=== PATIENT | female | born 1940 | race Caucasian/White ===

== ENCOUNTER 2017-03-09 17:10 | Inpatient (IN) | payer MEDICARE ==
[~2017-03-09] VITALS: Ht 152.4 cm; Wt 70.7 kg
[~2017-03-09 17:10] MED LIST: AMLO10TA2 PO; HYDR-3240 PO; HYDR-3342 PO; INSU100V5 SQ-INSULIN; METO-93 PO; METO25TA35 PO; SIMV10TA3 PO
[2017-03-09] MEDS ORDERED: ACETAMINOPHEN 325 MG TABLET PO ONE (17:30)
[2017-03-09] MEDS ORDERED: SODIUM CHLORIDE 0.9% 1,000ML IVBOLUS ONE ×2 (17:30→19:30)
[2017-03-09] MEDS ORDERED: SODIUM CHLORIDE FLUSH 10ML SYR IVF ONE (17:30)
[2017-03-09] MEDS ORDERED: ACETAMINOPHEN 325 MG TABLET ONE ×2 (17:43→17:44)
[2017-03-09 17:52] LABS: RAPID INFLUENZA A Negative (Negative); RAPID INFLUENZA B Negative (Negative)
[2017-03-09 18:13] LABS: ASPARTATE AMINO TRANSFERASE 8 U/L (15-37); BLOOD UREA NITROGEN 16 mg/dL (7-18)
[2017-03-09] MEDS ORDERED: CEFTRIAXONE PMX 1GM/50ML 50 ML ONE (18:54)
[2017-03-09] MEDS ORDERED: AZITHROMYCIN 500 MG in SODIUM CHLORIDE 0.9% 250 ML IV ONE (19:00)
[2017-03-09] MEDS ORDERED: CEFTRIAXONE PMX 1GM/50ML 50 ML IV ONE (19:00)
[2017-03-09] MEDS ORDERED: SODIUM CHLORIDE 0.9%, 500ML IVBOLUS ONE (19:00)
[2017-03-09] MEDS ORDERED: GLIP10TA13 PO (19:43)
[2017-03-09] MEDS ORDERED: OMEP-110 PO (19:44)
[2017-03-09] MEDS ORDERED: ASPI-496 PO (19:44)
[2017-03-09] MEDS ORDERED: ATOR10TA9 PO (19:45)
[2017-03-09] MEDS ORDERED: NOREPINEPHRINE 4 MG in SODIUM CHLORIDE 0.9% 246 ML IV PRN (20:00)
[2017-03-09] MEDS ORDERED: BISACODYL 10 MG SUPP PR PRN (22:00)
[2017-03-09] MEDS ORDERED: LABETALOL 5MG/ML 40ML VIAL IV PRN (22:00)
[2017-03-09] MEDS ORDERED: POLYETHYLENE GLYCOL 17 GM PACKET PO PRN (22:00)
[2017-03-09] MEDS ORDERED: VANCOMYCIN PER PHARMACY MC PRN (22:00)
[2017-03-09] MEDS ORDERED: HYDROcodone/APAP 5/325 TABLET PO PRN (22:00)
[2017-03-09] MEDS ORDERED: ACETAMINOPHEN 325 MG TABLET PO PRN (22:00)
[2017-03-09] MEDS ORDERED: DOCUSATE 100 MG CAPSULE PO PRN (22:00)
[2017-03-09] MEDS ORDERED: HEPARIN 5,000 UNITS/ML, 1ML ONE (23:37)
[2017-03-09] MEDS ORDERED: PIPERACILLIN/TAZO/PMX 3.375GM 50 ML ONE (23:37)
[2017-03-09] MEDS: PIPERACILLIN/TAZO/PMX 3.375GM 50 ML IV SCH (23:48)
[2017-03-09] MEDS: HEPARIN 5,000 UNITS/ML, 1ML SQ SCH (23:49)
[2017-03-10 00:30] LABS: IS PT STATUS REG ER OR PRE ER? YES
[2017-03-10] MEDS: INSULIN ASPART 100 UNITS/ML, PEN SQ-INSULIN SCH ×5 (01:41→20:40)
[2017-03-10] MEDS: ATORVASTATIN 10 MG TABLET PO SCH ×2 (03:34→20:34)
[2017-03-10] MEDS ORDERED: VANCOMYCIN 1,000 MG in SODIUM CHLORIDE 0.9% 100 ML IV ONE (04:00)
[2017-03-10] MEDS ORDERED: PHARMACOKINETIC MONITORING MC PRN (04:30)
[2017-03-10 05:10] LABS: ASPARTATE AMINO TRANSFERASE 16 U/L (15-37); BLOOD UREA NITROGEN 23 mg/dL (7-18)
[2017-03-10 05:17] LABS: IS PT STATUS REG ER OR PRE ER? YES
[2017-03-10] MEDS ORDERED: PIPERACILLIN/TAZO/PMX 3.375GM 50 ML ONE (05:33)
[2017-03-10] MEDS: PIPERACILLIN/TAZO/PMX 3.375GM 50 ML IV SCH ×3 (05:48→16:00)
[2017-03-10] MEDS: HEPARIN 5,000 UNITS/ML, 1ML SQ SCH ×2 (06:18→16:49)
[2017-03-10 08:41] VITALS: BP 109/57
[2017-03-10 09:10] VITALS: BP 97/48
[2017-03-10] MEDS: ASPIRIN 81 MG TABLET EC PO SCH (11:39)
[2017-03-10 13:30] VITALS: BP 181/82
[2017-03-10] MEDS: LINEZOLID PMX 600MG/300ML 300 ML IV SCH (14:26)
[2017-03-10] MEDS ORDERED: LIDOCAINE 1%, 20ML ONE (15:08)
[2017-03-10] MEDS ORDERED: SODIUM BICARBONATE 4.2%, 5ML ONE (15:08)
[2017-03-10 16:46] LABS: CYTOLOGY BODY FLUID RECD INTO PATHOLOGY; CYTOLOGY BODY FLUID SOURCE PLEURAL FLUID
[2017-03-10] MEDS: HYDROcodone/APAP 5/325 TABLET PO PRN ×2 (16:50→20:35)
[2017-03-10] MEDS: PIPERACILLIN/TAZO/PMX 2.25GM 50 ML IVPB SCH ×2 (17:49→22:58)
[2017-03-10] MEDS: TRAZODONE 50MG TABLET PO PRN (20:35)
[2017-03-11] MEDS: LINEZOLID PMX 600MG/300ML 300 ML IV SCH ×2 (00:41→11:59)
[2017-03-11] MEDS: HEPARIN 5,000 UNITS/ML, 1ML SQ SCH ×3 (02:03→18:24)
[2017-03-11] MEDS: HYDROcodone/APAP 5/325 TABLET PO PRN ×3 (04:38→15:49)
[2017-03-11 05:30] VITALS: BP 110/40
[2017-03-11] MEDS: PIPERACILLIN/TAZO/PMX 2.25GM 50 ML IVPB SCH ×3 (06:23→20:28)
[2017-03-11] MEDS: INSULIN ASPART 100 UNITS/ML, PEN SQ-INSULIN SCH ×4 (06:28→20:31)
[2017-03-11] MEDS: ASPIRIN 81 MG TABLET EC PO SCH (10:41)
[2017-03-11] MEDS: ATORVASTATIN 10 MG TABLET PO SCH (20:28)
[2017-03-12] MEDS ORDERED: PROCHLORPERAZINE 5 MG/ML, 2ML IM SCH
[2017-03-12] MEDS ORDERED: MORPHINE SULFATE 4 MG/ML, 1ML IVPush PRN
[2017-03-12] MEDS ORDERED: LORazepam 2 MG/ML, 1ML IVPush PRN
[2017-03-12] MEDS: LINEZOLID PMX 600MG/300ML 300 ML IV SCH ×2 (00:14→20:40)
[2017-03-12] MEDS: PIPERACILLIN/TAZO/PMX 2.25GM 50 ML IVPB SCH ×2 (01:16→09:16)
[2017-03-12] MEDS: HEPARIN 5,000 UNITS/ML, 1ML SQ SCH ×3 (01:18→18:27)
[2017-03-12 06:00] VITALS: BP 80/70
[2017-03-12] MEDS: HYDROcodone/APAP 5/325 TABLET PO PRN ×2 (07:43→15:28)
[2017-03-12] MEDS: INSULIN ASPART 100 UNITS/ML, PEN SQ-INSULIN SCH ×4 (07:57→20:40)
[2017-03-12 08:40] LABS: BLOOD UREA NITROGEN 20 mg/dL (7-18)
[2017-03-12] MEDS: ASPIRIN 81 MG TABLET EC PO SCH (09:17)
[2017-03-12 09:43] LABS: BLOOD UREA NITROGEN 20 mg/dL (7-18)
[2017-03-12] MEDS ORDERED: AMPICILLIN/SULBACTAM 3 GM in SODIUM CHLORIDE 0.9% 100 ML IV SCH (12:30)
[2017-03-12 14:14] LABS: CYTOLOGY BODY FLUID RECD INTO PATHOLOGY; CYTOLOGY BODY FLUID SOURCE PLEURAL FLUID
[2017-03-12] MEDS ORDERED: HYDROcodone/APAP 5/325 TABLET PO PRN (15:59)
[2017-03-12] MEDS ORDERED: PIPERACILLIN/TAZO 0.75 GM in SODIUM CHLORIDE 0.9% 50 ML IV SCH (16:00)
[2017-03-12] MEDS ORDERED: LIDOCAINE 2% VISCOUS, 100ML MM PRN (16:30)
[2017-03-12] MEDS ORDERED: SODIUM CHLORIDE 0.9% 1,000 ML IV PRN (16:30)
[2017-03-12] MEDS ORDERED: BENZOCAINE AEROSOL SPRAY 20%, 60ML TP PRN (16:30)
[2017-03-12] MEDS: ATORVASTATIN 10 MG TABLET PO SCH (19:51)
[2017-03-12] MEDS: PIPERACILLIN/TAZO/PMX 2.25GM 50 ML IV SCH (19:51)
[2017-03-12] MEDS: TRAZODONE 50MG TABLET PO PRN (21:24)
[2017-03-13] MEDS ORDERED: PROCHLORPERAZINE 5 MG/ML, 2ML IM PRN
[2017-03-13] MEDS: HEPARIN 5,000 UNITS/ML, 1ML SQ SCH ×3 (02:11→17:57)
[2017-03-13] MEDS: PIPERACILLIN/TAZO/PMX 2.25GM 50 ML IV SCH ×3 (04:02→20:20)
[2017-03-13 04:47] LABS: BLOOD UREA NITROGEN 14 mg/dL (7-18)
[2017-03-13 05:41] VITALS: BP 113/96
[2017-03-13] MEDS: INSULIN ASPART 100 UNITS/ML, PEN SQ-INSULIN SCH ×4 (07:00→20:24)
[2017-03-13] MEDS: LINEZOLID PMX 600MG/300ML 300 ML IV SCH ×2 (08:39→20:20)
[2017-03-13] MEDS: ASPIRIN 81 MG TABLET EC PO SCH (09:00)
[2017-03-13] MEDS: ATORVASTATIN 10 MG TABLET PO SCH (20:20)
[2017-03-14] MEDS: HEPARIN 5,000 UNITS/ML, 1ML SQ SCH ×3 (02:00→20:09)
[2017-03-14] MEDS: PIPERACILLIN/TAZO/PMX 2.25GM 50 ML IV SCH ×3 (04:05→20:08)
[2017-03-14 04:33] LABS: BLOOD UREA NITROGEN 18 mg/dL (7-18)
[2017-03-14 04:36] LABS: ASPARTATE AMINO TRANSFERASE 12 U/L (15-37)
[2017-03-14 06:18] VITALS: BP 98/38
[2017-03-14] MEDS: LINEZOLID PMX 600MG/300ML 300 ML IV SCH ×2 (09:06→20:45)
[2017-03-14] MEDS: INSULIN ASPART 100 UNITS/ML, PEN SQ-INSULIN SCH ×4 (09:07→20:12)
[2017-03-14] MEDS: ASPIRIN 81 MG TABLET EC PO SCH (12:59)
[2017-03-14 16:37] VITALS: BP 116/58
[2017-03-14 18:51] VITALS: BP 106/60
[2017-03-14] MEDS: ATORVASTATIN 10 MG TABLET PO SCH (20:45)
[2017-03-15 01:46] VITALS: BP 134/62
[2017-03-15] MEDS: PIPERACILLIN/TAZO/PMX 2.25GM 50 ML IV SCH ×3 (03:54→22:00)
[2017-03-15] MEDS: HEPARIN 5,000 UNITS/ML, 1ML SQ SCH ×3 (03:54→20:00)
[2017-03-15 05:26] LABS: BLOOD UREA NITROGEN 36 mg/dL (7-18)
[2017-03-15 07:27] VITALS: BP 146/66
[2017-03-15] MEDS: LINEZOLID PMX 600MG/300ML 300 ML IV SCH ×2 (09:03→23:29)
[2017-03-15] MEDS: INSULIN ASPART 100 UNITS/ML, PEN SQ-INSULIN SCH ×4 (09:03→21:00)
[2017-03-15] MEDS: ASPIRIN 81 MG TABLET EC PO SCH (09:03)
[2017-03-15 14:07] VITALS: BP 147/48
[2017-03-15 18:51] VITALS: BP 152/66
[2017-03-15] MEDS: ATORVASTATIN 10 MG TABLET PO SCH (22:04)
[2017-03-16] MEDS: HYDROcodone/APAP 5/325 TABLET PO PRN ×3 (00:41→22:12)
[2017-03-16 01:36] VITALS: BP 192/67
[2017-03-16] MEDS: HEPARIN 5,000 UNITS/ML, 1ML SQ SCH ×4 (04:47→23:36)
[2017-03-16] MEDS: PIPERACILLIN/TAZO/PMX 2.25GM 50 ML IV SCH ×3 (05:25→22:12)
[2017-03-16 06:12] LABS: ASPARTATE AMINO TRANSFERASE 9 U/L (15-37); BLOOD UREA NITROGEN 49 mg/dL (7-18)
[2017-03-16 06:39] VITALS: BP 158/70
[2017-03-16] MEDS: INSULIN ASPART 100 UNITS/ML, PEN SQ-INSULIN SCH ×4 (07:00→22:12)
[2017-03-16] MEDS: ASPIRIN 81 MG TABLET EC PO SCH (09:45)
[2017-03-16] MEDS ORDERED: SODIUM CHLORIDE 0.9% 1,000 ML IV ONE (10:30)
[2017-03-16 13:27] LABS: IS PT STATUS REG ER OR PRE ER? NO
[2017-03-16 14:30] VITALS: BP 145/60
[2017-03-16] MEDS: LINEZOLID PMX 600MG/300ML 300 ML IV SCH ×2 (14:37→23:36)
[2017-03-16 18:31] VITALS: BP 150/68
[2017-03-16 19:46] LABS: IS PT STATUS REG ER OR PRE ER? NO
[2017-03-16] MEDS: ATORVASTATIN 10 MG TABLET PO SCH (22:12)
[2017-03-17 01:22] VITALS: BP 146/61
[2017-03-17] MEDS: PIPERACILLIN/TAZO/PMX 2.25GM 50 ML IV SCH ×3 (05:53→22:05)
[2017-03-17 06:09] LABS: ASPARTATE AMINO TRANSFERASE 14 U/L (15-37); BLOOD UREA NITROGEN 26 mg/dL (7-18)
[2017-03-17] MEDS: INSULIN ASPART 100 UNITS/ML, PEN SQ-INSULIN SCH ×4 (08:00→21:34)
[2017-03-17 08:05] VITALS: BP 142/68
[2017-03-17] MEDS: ASPIRIN 81 MG TABLET EC PO SCH (10:26)
[2017-03-17] MEDS ORDERED: PROPOFOL 10 MG/ML, 20ML ONE (12:44)
[2017-03-17] MEDS: HEPARIN 5,000 UNITS/ML, 1ML SQ SCH ×2 (14:00→21:34)
[2017-03-17 14:56] VITALS: BP 130/80
[2017-03-17 20:00] VITALS: BP 143/55
[2017-03-17] MEDS: ATORVASTATIN 10 MG TABLET PO SCH (21:34)
[2017-03-17] MEDS: HYDROcodone/APAP 5/325 TABLET PO PRN (22:05)
[2017-03-17] MEDS ORDERED: MAGNESIUM HYDROXIDE 8%, 30ML UDC PO PRN (22:30)
[2017-03-17] MEDS: LINEZOLID PMX 600MG/300ML 300 ML IV SCH (23:10)
[2017-03-18 00:45] VITALS: BP 158/68
[2017-03-18] MEDS: HEPARIN 5,000 UNITS/ML, 1ML SQ SCH ×3 (06:00→20:24)
[2017-03-18] MEDS: PIPERACILLIN/TAZO/PMX 2.25GM 50 ML IV SCH ×3 (06:10→22:35)
[2017-03-18] MEDS: INSULIN ASPART 100 UNITS/ML, PEN SQ-INSULIN SCH ×4 (07:00→20:32)
[2017-03-18 07:25] VITALS: BP 147/65
[2017-03-18] MEDS: ASPIRIN 81 MG TABLET EC PO SCH (08:36)
[2017-03-18 13:15] VITALS: BP 138/76
[2017-03-18] MEDS: LINEZOLID PMX 600MG/300ML 300 ML IV SCH ×2 (13:41→22:56)
[2017-03-18 19:47] VITALS: BP 133/67
[2017-03-18] MEDS: DOXYCYCLINE 100MG TABLET PO SCH (20:31)
[2017-03-18] MEDS: ATORVASTATIN 10 MG TABLET PO SCH (20:31)
[2017-03-18] MEDS ORDERED: DIPHENHYDRAMINE 25 MG CAPSULE PO PRN (23:30)
[2017-03-19 01:42] VITALS: BP 124/59
[2017-03-19] MEDS: HEPARIN 5,000 UNITS/ML, 1ML SQ SCH ×2 (03:54→13:27)
[2017-03-19] MEDS: PIPERACILLIN/TAZO/PMX 2.25GM 50 ML IV SCH (05:45)
[2017-03-19] MEDS: INSULIN ASPART 100 UNITS/ML, PEN SQ-INSULIN SCH ×3 (07:00→16:41)
[2017-03-19 08:07] VITALS: BP 129/56
[2017-03-19] MEDS: DOXYCYCLINE 100MG TABLET PO SCH (08:50)
[2017-03-19] MEDS: ASPIRIN 81 MG TABLET EC PO SCH (08:50)
[2017-03-19] MEDS ORDERED: ALPR0.254 PO (11:03)
[2017-03-19] MEDS ORDERED: POLY17PO5 PO (11:03)
[2017-03-19] MEDS ORDERED: MAGN400O4 PO (11:03)
[2017-03-19] MEDS ORDERED: DOXY100T PO (11:03)
[2017-03-19] MEDS ORDERED: HEPA5000 SQ (11:03)
[2017-03-19] MEDS ORDERED: DOCU-30 PO (11:03)
[2017-03-19] MEDS ORDERED: LINE600I9 IV (11:55)
[2017-03-19] MEDS: LINEZOLID PMX 600MG/300ML 300 ML IV SCH (11:57)
[2017-03-19] MEDS ORDERED: PIPE2.253 IV (11:57)
[2017-03-19 13:05] LABS: ANA SCREEN POSITIVE (Negative)
[2017-03-19 13:45] VITALS: BP 141/64
[2017-03-23 15:06] LABS: CHLAMYDIA PNEUMONIAE IGM <1:10 (Neg:<1:10)
[2017-03-24 15:06] LABS: PROTEINASE 3 (PR-3) AB <3.5 U/mL (0.0-3.5)
[2017-03-25 03:06] LABS: PT 10.5 sec (9.6-11.5); aPTT 25.4 sec (22.9-30.2)
[2017-03-25 05:17] LABS: INTERPRETATION Note (.)
[2017-03-25 10:07] LABS: RESULT Not Detected (.); SPECIMEN SOURCE Whole Blood (.)
== END 2017-03-19 16:45 | DRG 288 ==
LOC: ED 18:42 → EDIP 19:48 → 3NW 03-10 08:25 → CCU 03-10 10:40 → 4WST 03-14 16:26
PROVIDERS: ADMIT Internal Medicine
PROC: 0T9B70Z Drainage of Bladder with Drainage Device, Via Natural or Artificial Opening (ICD-10-PCS; 2017-03-09)
PROC: 0W9B30Z Drainage of Left Pleural Cavity with Drainage Device, Percutaneous Approach (ICD-10-PCS; principal; 2017-03-10)
PROC: 5A1D60Z (ICD-10-PCS; 2017-03-11)
PROC: B246ZZ4 Ultrasonography of Right and Left Heart, Transesophageal (ICD-10-PCS; 2017-03-17)
DX: I33.0 Acute and subacute infective endocarditis (principal); A41.9 Sepsis, unspecified organism; J15.9 Unspecified bacterial pneumonia; N18.6 End stage renal disease; G92 Toxic encephalopathy; J96.01 Acute respiratory failure with hypoxia; R65.21 Severe sepsis with septic shock; I13.2 Hypertensive heart and chronic kidney disease with heart failure and with stage 5 chronic kidney disease, or end stage renal disease; I50.20 Unspecified systolic (congestive) heart failure; I69.354 Hemiplegia and hemiparesis following cerebral infarction affecting left non-dominant side; Z99.2 Dependence on renal dialysis; M54.5 Low back pain; E11.22 Type 2 diabetes mellitus with diabetic chronic kidney disease; E78.5 Hyperlipidemia, unspecified; D63.1 Anemia in chronic kidney disease; E86.1 Hypovolemia; F41.9 Anxiety disorder, unspecified; G89.29 Other chronic pain; I08.0 Rheumatic disorders of both mitral and aortic valves; I25.10 Atherosclerotic heart disease of native coronary artery without angina pectoris; I44.30 Unspecified atrioventricular block; N25.0 Renal osteodystrophy; Z66 Do not resuscitate; Z87.891 Personal history of nicotine dependence; Z95.0 Presence of cardiac pacemaker; I69.344 Monoplegia of lower limb following cerebral infarction affecting left non-dominant side; Z79.899 Other long term (current) drug therapy; Z79.82 Long term (current) use of aspirin; T42.4X5A Adverse effect of benzodiazepines, initial encounter
CPT/HCPCS: 32550; 36415; 71010; 80048; 80053; 80069; 81001; 82945; 82947; 82962; 83036; 83520; 83605; 83615; 83735; 83880; 84100; 84145; 84157; 84439; 84443; 84484; 85025; 85598; 85610; 85613; 85670; 85730; 86038; 86039; 86146; 86147; 86256; 86631; 86632; 86635; 86638; 87040; 87081; 87324; 87400; 87471; 87798; 88112; 88305; 89051; 93005; 93306; 93312; 93321; 93325; 96361; 96365; 96366; J0295; J0456; J0696; J1644; J1815; J2020; J2543; J2704; J3370; J3490; C1729; J0780; J2060; J7030; J7040; J7050; Q0163